=== PATIENT | male | born 1990 | race Two or more races ===

== ENCOUNTER 2019-12-23 10:10 | Emergency (ER) | payer OTHER ==
[~2019-12-23] VITALS: Ht 182.9 cm; Wt 146.1 kg
[2019-12-23 10:21] VITALS: BP 134/87
--- NOTE | 2019-12-23 10:42 | NUR ---
MORTGAGE CLOSER AT BEDSIDE
--- NOTE | 2019-12-23 11:58 | NUR ---
Patient discharged to home in stable condition. Written and verbal after care instructions given. Patient verbalizes understanding of instruction.
== END 2019-12-23 11:59 | disposition home or self-care (01) ==
LOC: ER 10:12
DX: S60.222A Contusion of left hand, initial encounter (principal); F32.9 Major depressive disorder, single episode, unspecified; V09.9XXA Pedestrian injured in unspecified transport accident, initial encounter; Y93.89 Activity, other specified; Y92.89 Other specified places as the place of occurrence of the external cause; Y99.8 Other external cause status
CPT/HCPCS: 73130-TC